=== PATIENT | female | born 1970 | race African-American/Black ===

== ENCOUNTER 2016-05-18 23:45 | Observation (INO) | payer SELFPAY ==
--- NOTE | ~2016-05-18 | HP ---
History And Physical [place] [id number] [facility] [place]. [address] NAME: MICHAELA HDEZ : 66 STATUS : ADM Marcos PAT#: [id number] AGE: 45 ADM/REG DATE : 05/19/16 MR#: [id number] REPORT SERV DATE: 05/19/16 DICTATED BY: APOLONIA HANCOCK DATE: 05/19/16 REPORT STATUS : Draft TRANSCRIBED BY: BEATRIZ DATE: 05/19/16 DATE OF ADMISSION: 05/19/2016 CHIEF COMPLAINT: Atypical chest pain. HISTORY OF PRESENT ILLNESS: A pleasant 45-year-old black female, reports one week of episodic chest pain, particularly in her right chest with some palpitations. She states the chest pain occurs randomly, there is no pattern, no exertional component expressed. She does describe some associated shortness of breath, nausea, diaphoresis, dizziness, and belching. At its most intense, she rates the chest pain a 9/10. At the time of interview in the [facility], she rates it a 7/10, and it does reproduce on exam, eliciting a wince and withdrawal. She did take low dose aspirin with no improvement in her symptoms. She denies any change in her activity. No pattern to her chest pain. She reports recent poor appetite and some weight loss. She denies any nausea, vomiting, or diarrhea. The patient denies any personal history of myocardial infarction, stroke, DVT, or pulmonary embolus. The patient reports recent UTI, currently on Bactrim, reports occasional palpitations, does not consume caffeinated beverages. Recent Holter monitor showed sinus tach with single PVCs and a rare PAC. No syncopal episodes. Denies PND or orthopnea. PAST MEDICAL HISTORY: 1. Hypertension. 2. GERD. 3. Cholesterol per PCP. 4. Ongoing tobacco abuse. 5. Asthma. SURGICAL HISTORY: 1. Hysterectomy. 2. Tubal ligation. 3. Appendectomy. 4. Ovarian cyst (benign). SOCIAL HISTORY: She is single with four children. She is employed as a cafeteria cashier. She does not have an exercise routine. She smokes a half pack per day for 15 plus years and has smoked as much as one pack per day. Occasionally, consumes alcohol. The patient reports previous use of hydrocodone for which she sought treatment. She has been off hydrocodone for more than two years and currently on methadone. FAMILY HISTORY: No embolic events reported in first-degree relatives. REVIEW OF SYSTEMS: A 14-point review of systems was performed, significant for HPI. No other contributory diagnoses identified. ALLERGIES: BENADRYL, HIVES. TORADOL, HIVES. ZOFRAN, HIVES. History And Physical [address] [place]. [address] NAME: MICHAELA HDEZ : 66 STATUS : ADM Marcos PAT#: [id number] AGE: 45 ADM/REG DATE : 05/19/16 MR#: [id number] REPORT SERV DATE: 05/19/16 DICTATED BY: APOLONIA HANCOCK DATE: 05/19/16 REPORT STATUS : Draft TRANSCRIBED BY: BEATRIZ DATE: 05/19/16 HOME MEDICATIONS: ProAir p.r.n., albuterol nebulizer p.r.n., Norvasc 10 mg nightly, aspirin 81 mg daily p.r.n., methadone 80 mg daily, Prilosec 20 mg daily, Bactrim DS x10 days. PHYSICAL EXAMINATION: VITAL SIGNS: Bilateral blood pressures on arrival, right 131/88, left 114/73, pulse 72, respirations 18, temperature 97.9, O2 saturation 98% on room air, height 5 feet 6 inches, weight 198 pounds, BMI 16. GENERAL: Cooperative, in no apparent distress. HEENT: Pupils 2 mm, sclera nonicteric. Nares patent. Moist mucous membranes. No xanthelasma. NECK: Trachea midline, no thyromegaly. No JVD. No bruits. LYMPH: No cervical lymphadenopathy. No supraclavicular lymphadenopathy. RESPIRATORY: Unlabored respirations. Breath sounds clear bilaterally to posterior auscultation. No wheezes or rhonchi. CHEST: Right chest tender to palpation on exam eliciting wince and withdrawal. CARDIOVASCULAR: Regular rate. No murmur, rub or gallop appreciated. EXTREMITIES: Without edema. Pulses 2+ bilaterally. ABDOMEN: Soft, nontender, nondistended, normal bowel sounds auscultated throughout. No organomegaly. SKIN: Warm, dry extremities. No pallor, or cyanosis. PSYCHIATRIC: Appropriate affect. Alert, oriented x3. LABORATORY DATA: Troponin less than 0.02 twice. Potassium 2.9, BUN 11, creatinine 0.87, glucose 71, magnesium 1.7. WBC 7.6, hemoglobin 13.5, hematocrit 39.0, platelet count 196,000. Urine drug screen negative except for tricyclics. UA essentially within normal limits. EKG: Sinus rhythm and sinus bradycardia. Holter 05/11/2016: Sinus tach with single PVCs noted and a rare PAC. ASSESSMENT AND PLAN: 1. Atypical chest pain with negative troponins and stable EKG. The patient has been held n.p.o. We will proceed with exercise treadmill today. Home if low risk, no ischemia. To follow up with her PCP in one to two weeks, all studies being sent there. 2. Hypokalemia, repleted in emergency. We will recheck and replete per protocol. Follow up PCP. 3. Reports poor appetite and weight loss. Follow up with PCP on May 21 as previously scheduled. 4. Palpitations. We will check a TSH and free T4 and send Holter monitor to PCP for followup. 5. Ongoing tobacco abuse. Counseled regarding cessation. DAV/BEATRIZ History And Physical [address] [address] NAME: MICHAELA HDEZ : 66 STATUS : ADM Marcos PAT#: [id number] AGE: 45 ADM/REG DATE : 05/19/16 MR#: [id number] REPORT SERV DATE: 05/19/16 DICTATED BY: APOLONIA HANCOCK DATE: 05/19/16 REPORT STATUS : Draft TRANSCRIBED BY: BEATRIZ DATE: 05/19/16 Apolonia Hancock, DEB, CASTING MACHINE ADJUSTER-BC / [id number] CC: Apolonia Hancock, MSN, CASTING MACHINE ADJUSTER-BC Bernarda Felix
[2016-05-19 01:21] LABS: BASOPHILS 0.1 %; BASOPHILS ABSOLUTE 0.01 10/3/uL (0.0-0.16); EOSINOPHILS 0.5 %; EOSINOPHILS ABSOLUTE 0.04 10/3/uL (0.0-0.53); HEMOGLOBIN 13.5 g/dL (12.0-16.0); IMMATURE GRANULOCYTES 0.3 %; IMMATURE GRANULOCYTES ABSOLUTE 0.02 10/3/uL (0.0-0.11); LYMPHOCYTES 17.1 %; LYMPHOCYTES ABSOLUTE 1.29 10/3/uL (0.67-4.30); MEAN CORPUS HGB CONC 34.6 g/dL (32.0-36.0); MEAN CORPUSCULAR HEMOGLOB 34.1 pg (26.0-34.0); MEAN CORPUSCULAR VOLUME 98.5 fL (80-100); MEAN PLATELET VOLUME 9.5 fL (9.2-13.0); MONOCYTES 6.6 %; NEUTROPHILS 75.4 %; PLATELET COUNT 196 10/3/uL (150-400); RBC DISTRIBUTION WIDTH 13.6 % (12.0-16.0); RED CELL COUNT 3.96 10/6/uL (4.0-5.6); WHITE BLOOD CELLS 7.6 10/3/uL (4.5-10.5)
[2016-05-19 01:25] LABS: ER CBC TAT 0 Hrs 06 MinsNP; MANUAL DIFF NO %
[2016-05-19 01:38] LABS: BUN (BLOOD UREA NITROGEN) 11 MG/DL (6-23); CALCIUM, SERUM 9.1 MG/DL (8.5-10.4); CHEST PAIN PROFILE TAT 0 Hrs 23 Mins; CHLORIDE, SERUM 103 MMOL/L (96-112); CO2 (CARBON DIOXIDE) 28 MMOL/L (24-34); CREATININE 0.87 MG/DL (0.55-1.02); GFR AFRICAN AMERICAN 92 ML/MIN (>=60); GFR NON AFRICAN AMERICAN 79 ML/MIN (>=60); GLUCOSE, SERUM 71 MG/DL (60-99); SODIUM, SERUM 141 MMOL/L (135-148); TROPONIN I <0.02 NG/ML (<0.05)
[2016-05-19 01:41] LABS: PARTIAL THROMBO TIME 29.6 SEC (22.5-37.2); PROTIME (NOT ORD) 13.1 SEC (12.0-14.5)
[2016-05-19 01:43] LABS: POTASSIUM, SERUM 2.9 MMOL/L (3.5-5.3)
[2016-05-19 04:30] LABS: ASCORBIC ACID (UR NOT ORDER) NEG (NEG); BILIRUBIN, URINE NEGATIVE (NEG); ER URINALYSIS TAT 0 Hrs 00 Mins; KETONE, URINE TRACE MG/DL (NEG); LEUKOCYTE ESTERASE(NOT OR NEG (NEG); NITRITE (URINE) NEG (NEG); WBC (NOT ORDERED) (RFLEX) 2 (0-5)
[2016-05-19 05:44] LABS: AMPHETAMINES (NOT ORD) NEG (NEG); BARBITURATES (NOT ORDERED NEG (NEG); BENZODIAZEPINES (NOT ORD) NEG (NEG); CANNABINOIDS (THC) NEG (NEG); COCAINE (NOT ORDERED) NEG (NEG); OPIATES NEG (NEG); PHENCYCLIDINE(PCP) NEG (NEG); TRICYCLICS POS (NEG)
[2016-05-19] MEDS ORDERED: PROAIR HFA INH (08:40)
[2016-05-19] MEDS ORDERED: ASAB PO (08:40)
[2016-05-19] MEDS ORDERED: NORV10 PO (08:40)
[2016-05-19] MEDS ORDERED: ALBUTEROL0.083 % INH (08:40)
[2016-05-19] MEDS ORDERED: BACTRIM DS1 TAB PO (08:41)
[2016-05-19] MEDS ORDERED: PRILO PO (08:41)
[2016-05-19] MEDS ORDERED: METHATAB40 PO (09:01)
[2016-05-19 13:05] LABS: POTASSIUM, SERUM 4.1 MMOL/L (3.5-5.3)
[2016-05-19 13:40] LABS: FREE T4 1.04 NG/DL (0.76-1.46); ULTRASENSITIVE TSH 0.771 MCIU/ML (0.358-3.740)
== END 2016-05-19 17:49 | disposition home or self-care (01) ==
LOC: ER 23:45 → CDU1 05-19 08:16 → CDU2 05-19 08:44
PROVIDERS: Clinical Nurse Specialist; Hospitalist
DX: R07.89 Other chest pain (principal); E87.6 Hypokalemia; R00.2 Palpitations; I10 Essential (primary) hypertension; K21.9 Gastro-esophageal reflux disease without esophagitis; J45.909 Unspecified asthma, uncomplicated; Z90.710 Acquired absence of both cervix and uterus; Z98.51 Tubal ligation status; Z90.49 Acquired absence of other specified parts of digestive tract; Z88.8 Allergy status to other drugs, medicaments and biological substances; Z91.030 Bee allergy status; Z79.82 Long term (current) use of aspirin
CPT/HCPCS: 71010; 78451; 78452; 80048; 80305; 81001; 83735; 84132; 84439; 84443; 84484; 85025; 85610; 85730; 93005; 93017; 96374; 96376; 99285; A9270-GY; A9502; G0378